=== PATIENT | male | born 1950 | race Caucasian/White ===

== ENCOUNTER → 2016-11-04 | Day surgery (SDC) | payer MEDICARE, OTHER ==
[~2016-11-04] VITALS: Ht 177.8 cm; Wt 105.7 kg
[~2016-11-04] MED LIST: ALPRAZOLAM0.5 MG PO; AMBIEN10 MG PO; AMITIZA24 MCG PO; ANTIVERT 25MG T25 MG PO; AUGMENTIN 500-500 MG PO; CARDURA 2MG TAB2 MG PO; CARDURA4 MG PO; DEPO-TESTO200 MG/1 M IM; DYAZIDE 37.5-21 EACH PO; DYMISTA NASAL S23 GM; ESOMEPRAZOLE MA20 MG PO; FLONASE 0.05% N16 GM; FLONASE ALLER15.8 ML; LIPITOR TAB 1010 MG PO; NORCO 5-325 TA1 EACH PO; NORVASC 5 MG TAB5 MG PO; ONDANSETRON ODT4 MG PO; PROCTOZONE-HC30 GM PR; SILDENAFIL20 MG PO; TRAZODONE HCL100 MG PO; TRIAMTERENE-HC1 EAC1 PO; VIT D PO; VITAMIN D50000 UNIT PO; WELLBUTRIN XL150 MG PO; XANAX1 MG PO; ZOLPIDEM TARTRA10 MG PO
== END | disposition home or self-care (01) ==
LOC: OR 06:11
PROVIDERS: Surgery
PROC: 0DBL8ZX Excision of Transverse Colon, Via Natural or Artificial Opening Endoscopic, Diagnostic (ICD-10-PCS; 2016-11-04)
PROC: 0DBK8ZZ Excision of Ascending Colon, Via Natural or Artificial Opening Endoscopic (ICD-10-PCS; principal; 2016-11-04 08:00)
DX: D12.2 Benign neoplasm of ascending colon (principal); K57.30 Diverticulosis of large intestine without perforation or abscess without bleeding; K64.4 Residual hemorrhoidal skin tags; I10 Essential (primary) hypertension; G47.30 Sleep apnea, unspecified; M19.90 Unspecified osteoarthritis, unspecified site; M54.9 Dorsalgia, unspecified; Z87.01 Personal history of pneumonia (recurrent); Z79.899 Other long term (current) drug therapy; Z90.49 Acquired absence of other specified parts of digestive tract
CPT/HCPCS: J7120

== ENCOUNTER → 2020-08-22 | Outpatient (CLI) | payer MEDICARE, OTHER ==
[~2020-08-22] MED LIST changes: +ALPRAZOLAM1 MG PO; +AMLODIPINE BESYL5 MG PO; +ASPIRIN EC81 MG PO; +BUPROPION XL150 MG PO; +CRESTOR10 MG PO; +DOXAZOSIN MESYLA4 MG PO; +ESOMEPRAZOLE MA40 MG PO; +IMODIUM CAP 2 MG2 MG PO; +LISINOPRIL5 MG PO; +MIRALAX PO; +MONTELUKAST SOD10 MG PO; +PROCTOCREAM-HC30 G1 TP; +PYRIDOSTIGMINE60 MG PO; +RANEXA500 MG PO; +TESTOSTERO200 MG/1 M IM; +TRIAMTERENE-HC1 EACH PO
== END ==
LOC: HEART 5 15:12
DX: R01.1 Cardiac murmur, unspecified (principal); R06.02 Shortness of breath; I08.1 Rheumatic disorders of both mitral and tricuspid valves; I27.20 Pulmonary hypertension, unspecified
CPT/HCPCS: 93306

== ENCOUNTER → 2021-04-18 | Day surgery (SDC) | payer MEDICARE, OTHER ==
[~2021-04-18] MED LIST changes: +LISINOPRIL10 MG PO; +MULTIVITAMINS1 EAC2 PO; +PREDNISONE 10 M10 MG PO; +VITAMIN D21250 MCG PO
== END | disposition home or self-care (01) ==
LOC: OR 05:42
DX: Z12.11 Encounter for screening for malignant neoplasm of colon (principal); D12.2 Benign neoplasm of ascending colon; K57.30 Diverticulosis of large intestine without perforation or abscess without bleeding; I25.10 Atherosclerotic heart disease of native coronary artery without angina pectoris; I12.9 Hypertensive chronic kidney disease with stage 1 through stage 4 chronic kidney disease, or unspecified chronic kidney disease; N18.2 Chronic kidney disease, stage 2 (mild); E78.2 Mixed hyperlipidemia; G47.33 Obstructive sleep apnea (adult) (pediatric); Z86.010 Personal history of colon polyps; Z79.899 Other long term (current) drug therapy; Z20.822 Contact with and (suspected) exposure to COVID-19
CPT/HCPCS: J2704; J7120

== ENCOUNTER → 2021-05-23 | Outpatient (CLI) | payer MEDICARE, OTHER | LOC: KOH-I 16:04 | DX: G70.00 Myasthenia gravis without (acute) exacerbation (principal) | CPT/HCPCS: 71250 ==

== ENCOUNTER → 2021-09-03 | Outpatient (CLI) | payer MEDICARE, OTHER | LOC: KOH-I 08-20 11:00 | DX: K76.89 Other specified diseases of liver (principal) | CPT/HCPCS: 76705 ==